=== PATIENT | female | born 1965 | race Caucasian/White ===

== ENCOUNTER 2018-10-29 10:49 | Emergency (ER) | payer OTHER ==
[~2018-10-29] VITALS: Ht 149.9 cm; Wt 59.0 kg
[2018-10-29] MEDS ORDERED: ZOCOR20 MG PO (10:55)
[2018-10-29] MEDS ORDERED: LEVOTHYROXINE25 MCG PO (10:56)
== END 2018-10-29 15:38 | disposition home or self-care (01) ==
LOC: ER 10:49
DX: S80.01XA Contusion of right knee, initial encounter (principal); S70.01XA Contusion of right hip, initial encounter; S60.221A Contusion of right hand, initial encounter; W18.39XA Other fall on same level, initial encounter; Y93.89 Activity, other specified; Y92.830 Public park as the place of occurrence of the external cause; Y99.8 Other external cause status